=== PATIENT | female | born 1940 | race Asian ===

== ENCOUNTER 2019-10-16 03:59 | Emergency (ER) | payer MEDICARE, MEDICAID ==
[~2019-10-16] VITALS: Ht 165.1 cm; Wt 72.6 kg
--- NOTE | 2019-10-16 04:10 | NUR ---
ED Nurse Note: Patient brought in by ambulance RA 34 from home with c/o fall. Patient was getting out of bed and fell. Denies any head trauma or injury. Pt denies any loss of consciousness. Per patient she feels tired and weak. BS 239 per EMS. Per EMS patient has fever; temp at ED T = 99.7F. Denies any chest pain/ SOB. Placed on isolation and monitor bed.
--- NOTE | 2019-10-16 04:15 | NUR ---
ED Nurse Note: ERMD at bedside
--- NOTE | 2019-10-16 04:15 | Emergency Room Report ---
History of Present Illness General Chief Complaint: Multiple Trauma/Fall Source: Patient, EMS Present Illness HPI This is a 79-year-old Lithuanian speaking female with a history of hypertension. She presents with chief plaint of generalized weakness and fall. She was doing well until tonight. She says she got up to use the restroom but felt very weak so she fell backward to her bed and slid down to the floor. Has no energy. When she tried to get up same thing happened. No fever chills but no nausea no vomiting. No chest pain. No urinary complaint. Denies any other complaint. No head injury. No loss of consciousness. Allergies: Coded Allergies: No Known Allergies (Unverified , 10/16/19) COVID-19 Screening Contact w/high risk pt: No Recent Travel to affected area: No Experienced COVID-19 symptoms?: No COVID-19 Testing performed MANAGED SECURITY SALES CONSULTANT: No Patient History Past Medical History: see triage record, old chart reviewed, HTN Past Surgical History: other Pertinent Family History: none Social History: Denies: smoking Now: No Immunizations: other Reviewed Nursing Documentation: PMH: Agreed; PSxH: Agreed Nursing Documentation-PMH Hx Hypertension: Yes Hx Diabetes: Yes Review of Systems Constitutional: Reports: malaise, weakness Eye: Denies: eye pain, blurred vision ENT: Denies: ear pain, nose congestion, throat swelling Respiratory: Denies: cough, shortness of breath Cardiovascular: Denies: chest pain, palpitations Gastrointestinal: Denies: abdominal pain, diarrhea, nausea, vomiting Musculoskeletal: Denies: back pain, joint pain Skin: Denies: rash Neurological: Denies: headache, numbness Endocrine: Denies: increased thirst, increased urine Hematologic/Lymphatic: Denies: easy bruising All Other Systems: negative except mentioned in HPI Physical Exam Vital Signs Date Time Temp Pulse Resp B/P (MAP) Pulse Ox O2 Delivery O2 Flow Rate FiO2 10/16/19 04:02 99.9 115 20 147/69 (95) 98 Room Air Vitals with fever Sp02 EP Interpretation: reviewed, normal General Appearance: well appearing, no apparent distress, alert Head: normocephalic, atraumatic Eyes: bilateral eye PERRL, bilateral eye EOMI ENT: hearing grossly normal, normal pharynx Neck: full range of motion, supple, no meningismus Respiratory: chest non-tender, lungs clear, normal breath sounds Cardiovascular #1: regular rate, rhythm, no murmur Gastrointestinal: normal bowel sounds, non tender, no mass, no organomegaly, no bruit, non-distended Musculoskeletal: back normal, normal range of motion, gait/station normal Psychiatric: mood/affect normal Skin: diaphoresis Medical Decision Making Diagnostic Impression: Primary Impression: CAP (community acquired pneumonia) Qualified Codes: J18.9 - Pneumonia, unspecified organism Additional Impressions: UTI (urinary tract infection) Qualified Codes: N30.00 - Acute cystitis without hematuria TRACEY (acute kidney injury) Hyperglycemia due to type 2 diabetes mellitus Qualified Codes: E11.65 - Type 2 diabetes mellitus with hyperglycemia ER Course This patient presents with what sounds like orthostatic hypotension. She is been having fever for last couple of days. Been feeling weak. This is from her daughter who is a physician. Chest x-ray here showed bilateral interstitial infiltrate. Urinalysis show infection. Her rapid COVID is negative. I discussed the admission versus transfer process with the daughter. She actually wants to take the patient to [facility] where her doctors are. Even though her mom is in [place], they live in [place]. Most of the time mom is in [place]. She wants to take her to [facility]. I explained the risks to her and she said that her vitals are stable and she is comfortable taking her. I will print out the labs and x-rays for her. EKG Diagnostic Results Rate: normal Rhythm: other - afib ST Segments: other - NSST changes Rhythm Strip Diag. Results EP Interpretation: yes Rate: 85 Rhythm: NSR, no PVC's, no ectopy Chest X-Ray Diagnostic Results Chest X-Ray Diagnostic Results : Chest X-Ray Ordered: Yes # of Views/Limited/Complete: 1 View Indication: Shortness of Breath EP Interpretation: Yes Interpretation: no effusion, no pneumothorax, other - b/l lower lobe interstitial infiltrates Impression: Other - b/l infiltrates Electronically Signed by: Dale Fine MD Last Vital Signs Date Time Temp Pulse Resp B/P (MAP) Pulse Ox O2 Delivery O2 Flow Rate FiO2 10/16/19 04:02 99.9 115 20 147/69 (95) 98 Room Air Status: improved Disposition: HOME, SELF-CARE Condition: Stable Dale Fine MD Oct 16, 2019 04:15
[2019-10-16 04:30] VITALS: BP 122/64
--- NOTE | 2019-10-16 04:30 | NUR ---
ED Nurse Note: Blood specimen, urine and covid test done and sent to lab
--- NOTE | 2019-10-16 04:50 | NUR ---
ED Nurse Note: technical systems architect at bedside
[2019-10-16 04:59] LABS: HEMATOCRIT 42.7 % (37.0-47.0); HEMOGLOBIN 13.7 G/DL (12.0-16.0); MEAN CORPUSCULAR VOLUME 94 FL (80-99); PLATELET COUNT 153 K/UL (150-450); RED BLOOD COUNT 4.56 M/UL (4.20-5.40); RED CELL DISTRIBUTION WIDTH 12.6 % (11.6-14.8); WHITE BLOOD COUNT 13.9 K/UL (4.8-10.8)
[2019-10-16 05:00] LABS: APPEARANCE,URINE SLIGHTLY CLOUDY; BILIRUBIN, URINE NEGATIVE (NEGATIVE); GLUCOSE, URINE (UA) 2+ (NEGATIVE); KETONES,URINE 2+ (NEGATIVE); LEUKOCYTE ESTERASE ,URINE 3+ (NEGATIVE); NITRITE,URINE POSITIVE (NEGATIVE); PH,URINE 5 (4.5-8.0); PROTEIN,URINE 3+ (NEGATIVE); UROBILINOGEN,URINE NORMAL MG/DL (0.0-1.0)
[2019-10-16 05:07] LABS: COLOR,URINE YELLOW
[2019-10-16] MEDS ORDERED: Azithromycin 500mg Inj IV ONE (05:10)
[2019-10-16] MEDS ORDERED: Azithromycin 500 MG in NS 275 ML IV ONE (05:15)
[2019-10-16] MEDS ORDERED: cefTRIAXone 1 GM in NS 55 ML IVPB ONE (05:15)
[2019-10-16 05:23] LABS: ANION GAP 15 mmol/L (5-15); BLOOD UREA NITROGEN 41 mg/dL (7-18); CALCIUM 9.5 MG/DL (8.5-10.1); CARBON DIOXIDE 22 MMOL/L (21-32); CHLORIDE 100 MMOL/L (98-107); CREATININE 1.7 MG/DL (0.55-1.30); POTASSIUM 3.2 MMOL/L (3.5-5.1); SODIUM 137 MMOL/L (136-145)
--- NOTE | 2019-10-16 05:34 | NUR ---
ED Nurse Note: Patients daughter came and visited the patient. Per pts daughter she will bring the patient to [facility] via private vehicle to get the patient admitted there.
[2019-10-16 05:37] LABS: ALANINE AMINOTRANSFERASE 19 U/L (12-78); ALBUMIN 3.5 G/DL (3.4-5.0); ALBUMIN/GLOBULIN RATIO 0.8 (1.0-2.7); ALKALINE PHOSPHATASE 66 U/L (46-116); ASPARTATE AMINO TRANSFERASE 27 U/L (15-37); BILIRUBIN,TOTAL 0.9 MG/DL (0.2-1.0); CKMB 0.8 NG/ML (0.0-3.6); CREATINE KINASE 113 U/L (26-308)
[2019-10-16 06:30] VITALS: BP 102/62
--- NOTE | 2019-10-16 06:30 | NUR ---
ER DISCHARGE NOTE: Patient was discharged and picked up by Emani (daughter) via private vehicle going to [facility]. Patients discharge packet and discharge instruction given to daughter. Patient ID band and IV site removed. Patient was accompanied by RN to the private vehicle via wheelchair and was transferred safely. Patient is AAOX4 and on room air. Patient took all belongings
[2019-10-16 06:52] VITALS: BP 102/72
--- NOTE | 2019-10-16 07:43 | Diagnostic Imaging Report ---
EXAM: XR Chest, 1 View CLINICAL HISTORY: SOB TECHNIQUE: Frontal view of the chest. COMPARISON: No relevant prior studies available. FINDINGS/IMPRESSION: Emphysematous changes with chronically increased in addition markings. Dependent atelectasis. Calcified nodule in the right suprahilar region measuring 2.8 x 1.9 cm, which are correlated with CT scan. No definite pleural effusion. No pneumothorax. Enlarged cardiac silhouette. Degenerative changes of the spine.
== END 2019-10-16 06:30 | disposition home or self-care (01) ==
LOC: EDBD 03:59 → EMR 04:17 → CANBEDREQ 06:39
DX: J18.9 Pneumonia, unspecified organism (principal); N30.00 Acute cystitis without hematuria; N17.9 Acute kidney failure, unspecified; E11.65 Type 2 diabetes mellitus with hyperglycemia; I10 Essential (primary) hypertension; I48.91 Unspecified atrial fibrillation
CPT/HCPCS: 36415; 71045; 80053; 81003; 82550; 82553; 83605; 84484; 85025; 85379; 86140; 87040; 87086; 87181; 93005; 96361; 96365; 96368; 99284; J0456; J0696; J7030; U0002